=== PATIENT | female | born 1980 | race Caucasian/White ===

== ENCOUNTER 2022-03-29 04:53 | Emergency (ER) | payer OTHER ==
[2022-03-29 05:17] LABS: BASOPHIL 1.4 % (0-2); EOSINOPHIL 1.6 % (0-5); HCT 45.9 % (37.0-47.0); HGB 15.7 g/dl (12.5-16.0); LYMPHOCYTE 29.9 % (15-48); MCH 31.8 pg (25.0-31.0); MCHC 34.2 g/dL (32.0-36.0); MCV 92.9 fL (78.0-100.0); MONOCYTE 13.4 % (0-12); NEUTROPHIL 53.4 % (41-80); NRBC 0; PLT 330 K/uL (150-400); RBC 4.94 M/uL (4.20-5.40); RDW 13.4 % (11.5-14.0); WBC 7.3 K/uL (4.0-10.5)
[2022-03-29 05:40] LABS: BILIRUBIN NEGATIVE (NEGATIVE); BLOOD NEGATIVE Ery/uL (NEGATIVE); CLARITY CLEAR (CLEAR); COLOR YELLOW (YELLOW); GLUCOSE (U) NORMAL (NORMAL); LEUKOCYTES NEGATIVE Leu/uL (NEGATIVE); NITRITE NEGATIVE (NEGATIVE); PROTEIN NEGATIVE (NEGATIVE); UROBILINOGEN 0.2 mg/dL (0.2-1.0)
[2022-03-29 05:40] LABS: ALBUMIN 3.5 g/dL (3.4-5.0); BILIRUBIN - TOTAL 0.6 mg/dL (0.2-1.0); BUN/CREAT RATIO (CALC) 8.8 RATIO; CREATININE 0.57 mg/dL (0.51-0.95); MAGNESIUM 1.8 mg/dL (1.8-2.4); POTASSIUM 3.6 mmol/L (3.5-5.1); TOTAL PROTEIN 7.5 g/dL (6.4-8.2)
[2022-03-29 06:17] LABS: CORONAVIRUS 2019 SARS-COV-2 NEGATIVE (NEGATIVE); INFLUENZA A NAA NEGATIVE (NEGATIVE)
[2022-03-29] MEDS ORDERED: AZITHROMYCIN250 MG PO (06:42)
[2022-03-29] MEDS ORDERED: VENTOLIN HFA IN18 GM INH (06:42)
[2022-03-29] MEDS ORDERED: PHENERGAN25 M1 PO (06:42)
[2022-03-29] MEDS ORDERED: ONDANSETRON ODT4 MG PO (06:42)
== END 2022-03-29 07:38 | disposition home or self-care (01) ==
LOC: FER 04:53
PROVIDERS: Internal Medicine
DX: R07.89 Other chest pain (principal); B34.9 Viral infection, unspecified; R06.2 Wheezing; I10 Essential (primary) hypertension; F17.210 Nicotine dependence, cigarettes, uncomplicated; Z20.822 Contact with and (suspected) exposure to COVID-19; Z79.899 Other long term (current) drug therapy; Z28.310 Unvaccinated for COVID-19
CPT/HCPCS: 36415; 71045; 80053; 81003; 83690; 83735; 84145; 84439; 84443; 84484; 85025; 93005; 94640; 94664; J1100; J2405; J2550; J7120; U0002